=== PATIENT | female | born 1955 | race African-American/Black ===

== ENCOUNTER → 2024-08-25 | Outpatient (CLI) | payer MEDICARE ==
--- NOTE | 2024-08-28 13:30 | MM ---
Reason for Exam: Screening (asymptomatic). Last mammogram was performed 1 year(s) and 1 month(s) ago. Patient History: Menarche at age 12. First Full-Term at age 31. Late child-bearing (after 30). Postmenopausal. Mother had breast cancer, age 70. Risk Values: Ann 5 year model risk: 2.8%. NCI Lifetime model risk: 8.0%. Prior Study Comparison: 07/02/2022 Bilateral Screening Mammogram, [facility]. 07/29/2023 Bilateral Screening Mammogram, [facility]. Tissue Density: There are scattered areas of fibroglandular density. Findings: Analyzed By CAD. There is no suspicious group of microcalcifications. Asymmetric density in the central portion of the left breast. Recommend spot compression view.. Overall Assessment: Incomplete: need additional imaging evaluation, BI-RAD 0 Management: Diagnostic Mammogram of the left breast. . Patient should continue monthly self-breast exams. A clinical breast exam by your physician is recommended on an annual basis. This exam should not preclude additional follow-up of suspicious palpable abnormalities. Note on Ann scores and lifetime risk: 1. A Ann score greater than 3% is considered moderate risk. If this is the case, consider specialist referral to assess eligibility for a risk reducing agent. 2. If overall lifetime risk for the development of breast cancer is 20% or higher, the patient may qualify for future screening with alternating mammogram and breast MRI. [facility], , 08/28/2024 1:27 PM. Electronically signed and approved by: Josh Treviño M.D. Radiologis
== END | disposition home or self-care (01) ==
LOC: RADMAMWWP 14:56
PROVIDERS: ATTEND Internal Medicine Geriatric Medicine
DX: Z12.31 Encounter for screening mammogram for malignant neoplasm of breast (principal); Z78.0 Asymptomatic menopausal state; Z80.3 Family history of malignant neoplasm of breast; R92.323 Mammographic fibroglandular density, bilateral breasts
CPT/HCPCS: 77063; 77067

== ENCOUNTER → 2024-08-30 | Outpatient (CLI) | payer MEDICARE ==
--- NOTE | 2024-08-30 14:24 | MM ---
Reason for Exam: Additional evaluation requested from abnormal screening. Last screening mammogram was performed less than 1 month ago. Patient History: Menarche at age 12. First Full-Term at age 31. Late child-bearing (after 30). Postmenopausal. Mother had breast cancer, age 70. Risk Values: Ann 5 year model risk: 2.8%. NCI Lifetime model risk: 8.0%. Prior Study Comparison: 07/02/2022 Bilateral Screening Mammogram, [facility]. 07/29/2023 Bilateral Screening Mammogram, [facility]. 08/25/2024 Bilateral MG 3D screening mammo w/cad, [facility]. Tissue Density: Left: The breasts are almost entirely fatty. Findings: Analyzed By CAD. Pattern appears stable. On compression no persistent suspicious asymmetric density is evident. No suspicious groups of microcalcifications, spiculated or lobular masses, architectural distortion or other secondary signs of malignancy are mammographically apparent. Overall Assessment: Probably benign, BI-RAD 3 Management: Diagnostic Mammogram of the left breast in 6 months. A negative mammogram report should not preclude additional follow up of suspicious palpable abnormalities. Patient should continue monthly self breast exam. A clinical breast exam by your physician is recommended on an annual basis and results should be correlated with mammographic findings. Note on Ann scores and lifetime risk: 1. A Ann score greater than 3% is considered moderate risk. If this is the case, consider specialist referral to assess eligibility for a risk reducing agent. 2. If overall lifetime risk for the development of breast cancer is 20% or higher, the patient may qualify for future screening with alternating mammogram and breast MRI. [facility], , 08/30/2024 2:16 PM. Electronically signed and approved by: Jadon Xie D.O. Radiologis
== END | disposition home or self-care (01) ==
LOC: RADMAMWWP 13:58
PROVIDERS: ATTEND Internal Medicine Geriatric Medicine
DX: R92.8 Other abnormal and inconclusive findings on diagnostic imaging of breast (principal); Z78.0 Asymptomatic menopausal state; Z80.3 Family history of malignant neoplasm of breast
CPT/HCPCS: 77065; G0279; 77061